=== PATIENT | male | born 1960 | race Hispanic/Latino ===

== ENCOUNTER → 2020-01-12 | Day surgery (SDC) | payer OTHER ==
[2020-01-11 10:56] LABS: BASOPHILS # (AUTO) 0.1 (0.0-0.1); EOSINOPHILS # (AUTO) 0.7 (0.0-0.4); EOSINOPHILS % 10.9 % (0.0-6.0); HEMATOCRIT 47.4 % (38.2-49.6); HEMOGLOBIN 15.7 g/dL (14.0-18.0); LYMPHOCYTES # (AUTO) 1.3 (1.0-3.2); LYMPHOCYTES % 20.7 % (18.0-39.1); MEAN CORPUSCULAR HEMOGLOBIN 27.1 pg (28-32); MEAN CORPUSCULAR HGB CONC 33.1 g/dL (31-35); MEAN CORPUSCULAR VOLUME 81.7 fL (81-99); MONOCYTES # (AUTO) 0.6 (0.2-0.8); MONOCYTES % 9.5 % (4.4-11.3); NEUTROPHILS # (AUTO) 3.6 (2.1-6.9); NEUTROPHILS % 57.9 % (38.7-80.0); PLATELET COUNT 235 x10e3/uL (140-360); RED CELL DISTRIBUTION WIDTH 13.5 % (11.7-14.4)
--- NOTE | 2020-01-11 11:23 | Diagnostic Imaging Report ---
EXAMINATION: CHEST 2 VIEWS INDICATION: Pre-operative COMPARISON: None FINDINGS: LINES/TUBES:None LUNGS:The lungs are well-inflated. No focal consolidation or pulmonary edema. Left midlung calcified granuloma. PLEURA:No pleural effusion or pneumothorax. MEDIASTINUM:The cardiomediastinal silhouette appears normal in size and shape. Atherosclerotic calcifications of the thoracic aorta. BONES/SOFT TISSUES:No acute osseous injury. ABDOMEN:No free air under the diaphragm. IMPRESSION: No focal pneumonia or pulmonary edema. Signed by: Sil Mercer MD on 01/11/2020 11:21 AM
[2020-01-11 11:24] LABS: ALANINE AMINOTRANSFERASE 49 IU/L (0-55); ALBUMIN 3.9 g/dL (3.5-5.0); ALKALINE PHOSPHATASE 224 IU/L (40-150); ANION GAP 9.3 mmol/L (8-16); BLOOD UREA NITROGEN 13 mg/dL (7-26); BUN/CREATININE RATIO 15 (6-25); CALCIUM 9.3 mg/dL (8.4-10.2); CARBON DIOXIDE 31 mmol/L (22-29); CHLORIDE 103 mmol/L (98-107); CREATININE, SERUM 0.88 mg/dL (0.72-1.25); EST GLOMERULAR FILTRATION RATE > 60 ML/MIN (60-); GLUCOSE 98 mg/dL (74-118); POTASSIUM 4.3 mmol/L (3.5-5.1); SODIUM 139 mmol/L (136-145)
[~2020-01-12] MED LIST: BUPIVACAINE 0.25% 30ML SDV INJ ONE; DEXAMETHASONE SOD PHOS INJ 4 MG/ML VIAL ONE; FENTANYL CITRATE/PF 100MCG/2 ML INJ ONE; GLYCOPYRROLATE INJ 0.2 MG/ML VIAL ONE; HYDROCODONE/APAP 7.5MG-325MG 1 EA TAB ONE; HYDROMORPHONE 1MG/1ML INJ ONE; LIDOCAINE HCL 2% LOCAL INJ 5 ML SDV VIAL INJ ONE; MIDAZOLAM HCL 2 MG/2 ML VIAL ONE; NEOSTIGMINE 1 MG/ML 10ML VIAL ONE; ONDANSETRON HCL INJ 2MG/ML 2ML 2 MG/ML VIAL ONE; PAROXETINE HCL20 MG PO; PROPOFOL IV EMULSION 10 MG/ML 20 ML VIAL ONE; ROCURONIUM BROMIDE 10 MG/ML 5ML VIAL ONE; SEVOFLURANE INHAL SOLN 250 ML PEN BTL ONE
--- OUTSIDE RECORDS SUMMARY | 2020-01-12 06:59 | XMS REPORT ---
Author Author Admin, [place] Organization Unknown Address Unknown Phone Unavailable PROBLEMS Condition Status Date Provider Notes Gallbladder polyps active Vilma C Nieto Cluster of Gallbladder polyps Prediabetes active Vilma C Nieto Hypovitaminosis D active Vilma C Nieto Elevated LFT's active Vilma C Nieto Hx of alcohol abuse active Vilma C Nieto Psa, screening active Vilma C Nieto Screening for lipid disorder active Vilma C Nieto Screening for vitamin D deficiency active Vilma C Nieto Screening for thyroid disorder active Vilma C Nieto Colon cancer screening active Vilma C Nieto Std screening active Vilma C Nieto Annual exam (18+) active Vilma C Nieto Screening for vision active Vilma C Nieto DEPRESSIVE DISORDER, MAJOR, RECURRENT EPISODE, FULL REMISSION active Marla De La Torre PANIC DISORDER active Marla De La Torre DEPRESSIVE DISORDER, MAJOR, RECURRENT EPISODE, MODERATE active Marla De La Torre ENCOUNTERS Date Type Provider Location Encounter Diagnosis - Ambulatory Encounter [facility] - Ambulatory Encounter Marla Brizuela [facility] UNK - Ambulatory Encounter [facility] - Ambulatory Encounter Fax Status [facility] UNK - Ambulatory Encounter Marlayoel [facility] UNK - Ambulatory Encounter Fax Status [facility] UNK - Ambulatory Encounter Tasha Becky [facility] UNK - Ambulatory Encounter Mar[facility] Ambulatory Encounter [facility] - [facility]ulatory [facility] - [facility] En[facility] - [facility]ulatory Encounter F[facility] - Ambulatory Encounter Vilma C Nieto [facility] C [facility] UNK - Ambulatory Encounter Vilma C Nieto Vilma C [facility] UNK - Ambulatory Encounter Vilma C Nieto Vilma C Nieto Tasha Becky [facility] Gallbladder polyps - Ambulatory Encounter [facility]K - Ambulatory Encounter Miguel [facility] UNK - Ambulatory Encounter Miguel Mcfarland [facility] UNK - Ambulatory Encounter Marla [facility] UNK - Ambulatory Encounter Marla Gutierrez [facility] UNK - Ambulatory Encounter Rachelle Mcfarland [facility] UNK - Ambulatory Encounter Nisha [facility] UNK - Ambulatory Encounter Vilma C Nieto Vilma Bryan Mcfarland [facility] UNK - Ambulatory Encounter Vilma C Nieto Vilma C Nieto Juancho Mcfarland [facility] Hx of alcohol abuseElevated LFT'sHypovitaminosis DPrediabetes - Ambulatory Encounter Nisha [facility] UNK - Ambulatory Encounter Rachelle Mcfarland [facility] UNK - Ambulatory Encounter Vilma C Nieto Vilma Mcfarland [facility] UNK - Ambulatory Encounter Nicole Mcfarland [facility] UNK - Ambulatory Encounter Vilma C Nieto Vilma C Gerson Mcfarland [facility] UNK - Ambulatory Encounter Vilma C Nieto Vilma C Nieto Brenda Mcfarland [facility] UNK - Ambulatory Encounter Vilma C Nieto Vilma C Nieto Brenda Mcfarland [facility] UNK - Ambulatory Encounter Vilma C Nieto Vilma C Nieto Bartolo [facility] UNK - Ambulatory Encounter Vilma C Nieto Vilma C Nieto Nicole Mcfarland [facility] Screening for visionAnnual exam (18+)Std screeningColon cancer screeningScreening for thyroid disorderScreening for vitamin D deficiencyScreening for lipid disorderPsa, screening - Ambulatory Encounter [facility] [place] DEPRESSIVE DISORDER, MAJOR, RECURRENT EPISODE, FULL REMISSION - Ambulatory Encounter [facility] UNK - Ambulatory Encounter [facility] UNK - Ambulatory Encounter Marla [facility] [place] DEPRESSIVE DISORDER, MAJOR, RECURRENT EPISODE, MODERATEPANIC DISORDER - Ambulatory Encounter Monalisa Herrera [facility] UNK VITAL SIGNS No Information Available Allergies No Known Allergy Information REASON FOR REFERRAL No Information Available RESULTS Date Observation Value Provider Reference Range Interpretation Location hepatitis B surface antigen Negative [facility] Negative " thyroid stimulating hormone, serum 1.440 u[iU]/mL [facility] 0.450-4.500 " hepatitis C antibody, serum <0.1 [facility] 0.0-0.9 " HIV-CMIA (Chemiluminescent Microparticle Immuno Assay) Non Reactive [facility] Non Reactive " vitamin D 25-hydroxy, serum 22.8 ng/mL [facility] 30.0-100.0 Low " rapid plasma reagin antibody, serum Non Reactive [facility] Non Reactive " hemoglobin A1C, blood, as % of total hemoglobin 5.7 % [facility] 4.8-5.6 High " prostate specific antigen 0.6 ng/mL [facility] 0.0-4.0 " Neisseria gonorrhoeae DNA probe Negative [facility] Negative " chlamydia DNA probe Negative [facility] Negative " LDL cholesterol, serum 122 mg/dL [facility] 0-99 High " very low density lipoproteins 24 mg/dL [facility] 5-40 " HDL cholesterol, serum 53 mg/dL [facility] >39 " triglyceride, serum, fasting 122 mg/dL [facility] 0-149 " cholesterol, serum 199 mg/dL [facility] 100-199 " alanine aminotransferase (SGPT), serum 67 1/L [facility] 0-44 High " aspartate aminotransferase (SGOT), serum 48 1/L [facility] 0-40 High " alkaline phosphatase, serum 211 1/L [facility] 39-117 High " bilirubin, serum, total 0.5 mg/dL [facility] 0.0-1.2 " albumin/globulin ratio, serum 1.5 [facility] 1.2-2.2 " globulin, serum 2.9 [facility] 1.5-4.5 " albumin, serum 4.3 g/dL [facility] 3.5-5.5 " protein, total, serum 7.2 g/dL [facility] 6.0-8.5 " calcium, serum 9.3 mg/dL [facility] 8.7-10.2 " carbon dioxide, venous blood 22 mmol/L [facility] 18-29 " chloride, serum 103 mmol/L [facility] 96-106 " potassium, serum 4.7 mmol/L [facility] 3.5-5.2 " sodium, serum 140 mmol/L [facility] 134-144 " urea nitrogen/creatinine ratio, serum 22 [facility] 9-20 High " eGFR if 114 mL/min/((173/100).m2) [facility] >59 " Estimated Glomerular Filtration Rate (calc) 98 mL/min/((173/100).m2) [facility] >59 " creatinine, serum 0.83 mg/dL [facility] 0.76-1.27 " urea nitrogen, blood 18 mg/dL [facility] 6-24 " blood glucose, random 98 mg/dL [facility] 65-99 " immature granulocytes, percentage of total cells, blood 0 % [facility] Not Estab. " basophil count, absolute 0.0 x10E3/uL [facility] 0.0-0.2 " Eosinophil Absolute Count 0.8 X10E3/UL [facility] 0.0-0.4 High " monocyte count, blood, automated 0.6 X10E3/UL [facility] 0.1-0.9 " lymphocyte count, blood, automated 1.5 X10E3/UL [facility] 0.7-3.1 " Absolute Neutrophils 3.9 X10E3/UL [facility] 1.4-7.0 " basophils as percent of blood leukocytes 0 % [facility] Not Estab. " eosinophils as percent of blood leukocytes 11 % [facility] Not Estab. " monocytes as percent of blood leukocytes 9 % [facility] Not Estab. " lymphocytes as percent of blood leukocytes 22 % [facility] Not Estab. " neutrophils as percent of blood leukocytes 58 % [facility] Not Estab. " platelet count 237 X10E3/UL [facility] 150-379 " red blood cell distribution width 14.2 % [facility] 12.3-15.4 " mean corpuscular hemoglobin concentration, RBC 32.7 G/DL [facility] 31.5-35.7 " mean corpuscular hemoglobin, RBC 27.5 pg [facility] 26.6-33.0 " mean corpuscular volume, RBC 84 fL [facility] 79-97 " hematocrit, blood 44.1 % [facility] 37.5-51.0 " hemoglobin, blood 14.4 g/dL [facility] 13.0-17.7 " erythrocyte (RBC) count 5.23 X10E6/UL [facility] 4.14-5.80 " leukocyte count, blood 6.7 X10E3/UL [facility] 3.4-10.8 HISTORY OF IMMUNIZATIONS No Information Available HISTORY OF MEDICATION USE Medication Instructions Dates Provider Comments VITAMIN D (ERGOCALCIFEROL) 65126 UNIT ORAL CAPSULE One capsule by mouth once per week for 10 weeks - Vilma Nieto PAROXETINE 20MG TABLETS TAKE 1 TABLET BY MOUTH DAILY Hunter Em instructions in [place] SOCIAL HISTORY Date Observation Value Provider social history E&M . x2, for the last 22 years , 4 children from first marrage and one child from last marriage Notes that he had an affair with his first a year ago Born in [facility] . 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 Sexual orientation: Heterosexual. Marlasulema De La Torre " social history reviewed E&M reviewed today Marla De La Torre " drug use, illicit Never Marla Britt " alcohol use Never Marla Britt " smoking status never smoker Marla De La Torre drug use, illicit Never Marla Britt " alcohol use Never Marla Britt " smoking status never smoker Marla Britt " social history E&M . x2, for the last 22 years , 4 children from first marrage and one child from last marriage Notes that he had an affair with his first a year ago [facility] . 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 Sexual orientation: Heterosexual. Marlasulema Combse " social history reviewed E&M reviewed today Marlasulema Combse drug use, illicit Never Marla Britt " alcohol use Never Marla Britt " smoking status never smoker Marla Britt " social history E&M . x2, for the last 22 years , 4 children from first marrage and one child from last marriage Notes that he had an affair with his first a year ago Born in [facility] . 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 Sexual orientation: Heterosexual. Marla Marie " social history reviewed E&M reviewed today Marlasulema Combse drug use, illicit Never Marla Britt " alcohol use Never Marla Britt " smoking status never smoker Marla Britt " social history E&M . x2, for the last 22 years , 4 children from first marrage and one child from last marriage Notes that he had an affair with his first a year ago Born in [facility] . 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 Sexual orientation: Heterosexual. Marla Britt " social history reviewed E&M reviewed today Marla Britt time of call 06/28/2018 3:31 PM Nisha Hatch Exercise Program Referral Latoya Zhang " Weight Management Counseling Provided Latoya Zhang " Nutrition intervention Latoya Zhang " drug use, illicit Never Juancho Zhang " alcohol use Never Juancho Zhang " social history E&M . x2, for the last 22 years , 4 children from first marrage and one child from last marriage Notes that he had an affair with his first a year ago Born in [facility] . 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 Sexual orientation: Heterosexual. Juancho Zhang " social history reviewed E&M reviewed today Juancho Zhang " is there any chance that you could be ? No Juancho Zhang " passive cigarette smoke exposure No Juancho Zhang " smoking status never smoker Juancho Zhang drug use, illicit Never Marla Britt " alcohol use Never Marla Britt " smoking status never smoker Marla Britt " social history E&M . x2, for the last 22 years , 4 children from first marrage and one child from last marriage Notes that he had an affair with his first a year ago Born in [facility] . 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 Sexual orientation: Heterosexual. Marla Combse " social history reviewed E&M reviewed today Marlasulema Combse time of call 05/10/2018 4:02 PM Nisha AlvaradoEddie sexual orientation Heterosexual Nicole Najera " Exercise Program Referral Latoya Najera " Weight Management Counseling Provided T Nicole Najera " Nutrition intervention T Nicole Najera " drug use, illicit Never Juancho Zhang " alcohol use Never Juancho Zhang " social history E&M . x2, for the last 22 years , 4 children from first marrage and one child from last marriage Notes that he had an affair with his first a year ago Born in [facility] . 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 Sexual orientation: Heterosexual. Juancho Zhang " social history reviewed E&M reviewed today Juancho Zhang " is there any chance that you could be ? No Juanchojazmin Zhang " passive cigarette smoke exposure No Juancho Zhang " smoking status never smoker Juancho Zhang time of call 04/22/2018 2:11 PM Nisha AlvaradoEddie drug use, illicit Never Nicole Najera " alcohol use Never Nicole Najera " social history E&M . x2, for the last 22 years , 4 children from first marrage and one child from last marriage Notes that he had an affair with his first a year ago Born in [facility] . 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 Sexual orientation: Heterosexual. Nicole Najera " social history reviewed E&M reviewed today Nicole Najera " sexual orientation Heterosexual Nicole Najera " is there any chance that you could be ? No Nicole Naejra " passive cigarette smoke exposure No Nicole Najera " smoking status never smoker Nicole Najera " Exercise Program Referral T Nicole Najera " Weight Management Counseling Provided T Nicole Najera " Nutrition intervention T Nicole Najera drug use, illicit Never Marla Britt " alcohol use Never Marla Britt " smoking status never smoker Marla Britt " social history E&M . x2, for the last 22 years , 4 children from first marrage and one child from last marriage Notes that he had an affair with his first a year ago Born in [facility] . 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 Sexual orientation: Heterosexual. Marla Britt " social history reviewed E&M reviewed today Marla Britt drug use, illicit Never Marla Britt " alcohol use Never Marla Britt " smoking status never smoker Marla Britt " social history E&M . x2, for the last 22 years , 4 children from first marrage and one child from last marriage Notes that he had an affair with his first a year ago Born in [facility] . 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 Sexual orientation: Heterosexual. Marla Britt " social history reviewed E&M reviewed today Marla Britt social history E&M . x2, for the last 22 years , 4 children from first marrage and one child from last marriage Notes that he had an affair with his first a year ago Born in [facility] . 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 Sexual orientation: Heterosexual. Marlasulema Combse " sexual orientation Heterosexual Marla Britt " sex at Male Marlasulema De La Torre " family support x2, for the last 22 years , 4 children from first marrage and one child from last marriage Notes that he had an affair with his first a year ago Marla De La Torre " drug use, illicit Never Marla Britt " alcohol use Never Marla Britt " smoking status never smoker Marlasulema De La Torre " social history reviewed E&M reviewed today Marlasulema Combse FUNCTIONAL STATUS No Information Available MENTAL STATUS Date Observation Value Provider mental status assessment, judgment good Marla Britt " insight (mental status exam) good Marla Britt " Mental Status Exam: intelligence adequate fund of information, intact memory processes, oriented to person, oriented to place, oriented to time, oriented to situation, oriented to reality Marla Britt " hallucinations none Marla Britt " thought content (mental status exam) (E&M) lucid Marla Britt " mental status assessment, process able to abstract, goal-directed, logical Marla Britt " mental status assessment, sensorium alert, attentive, clear Marla Britt " affect (mental status exam) congruent, euthymic, normal intensity, normal range Marla Britt " mood (mental status exam) anxious Marla Britt " mental status assessment, speech activity normal flow, normal pace, normal pressure, normal rate, normal tone, normal volume, spontaneous Marla Britt " mental status assessment, motor activity normal gait, normal posture Marla Britt " behavior (mental status exam) appropriate, candid, cooperative, good eye contact, polite, responsive Marla Britt " mental appearance (mental status exam) adequate hygiene, appropriate dress, looks like stated age, neat Marla Britt mental status assessment, judgment good Marla Britt " insight (mental status exam) good Marla Britt " Mental Status Exam: intelligence adequate fund of information, intact memory processes, oriented to person, oriented to place, oriented to time, oriented to situation, oriented to reality Marla Britt " hallucinations none Marla Britt " thought content (mental status exam) (E&M) lucid Marla Britt " mental status assessment, process able to abstract, goal-directed, logical Marla Britt " mental status assessment, sensorium alert, attentive, clear Marla Britt " affect (mental status exam) congruent, euthymic, normal intensity, normal range Marla Britt " mood (mental status exam) happy Marla Britt " mental status assessment, speech activity normal flow, normal pace, normal pressure, normal rate, normal tone, normal volume, spontaneous Marla Britt " mental status assessment, motor activity normal gait, normal posture Marla Britt " behavior (mental status exam) appropriate, candid, cooperative, good eye contact, polite, responsive Marla Britt " mental appearance (mental status exam) adequate hygiene, appropriate dress, looks like stated age, neat Marla Britt mental status assessment, judgment good Marla Britt " insight (mental status exam) good Marla Britt " Mental Status Exam: intelligence adequate fund of information, intact memory processes, oriented to person, oriented to place, oriented to time, oriented to situation, oriented to reality Marla Britt " hallucinations none Marla Britt " thought content (mental status exam) (E&M) lucid Marla Britt " mental status assessment, process able to abstract, goal-directed, logical Marla Britt " mental status assessment, sensorium alert, attentive, clear Marla Britt " affect (mental status exam) congruent, euthymic, normal intensity, normal range Marla Britt " mood (mental status exam) happy Marla Britt " mental status assessment, speech activity normal flow, normal pace, normal pressure, normal rate, normal tone, normal volume, spontaneous Marla Britt " mental status assessment, motor activity normal gait, normal posture Marla Britt " behavior (mental status exam) appropriate, candid, cooperative, good eye contact, polite, responsive Marla Britt " mental appearance (mental status exam) adequate hygiene, appropriate dress, looks like stated age, neat Marla Britt mental status assessment, judgment good Marla Britt " insight (mental status exam) good Marla Britt " Mental Status Exam: intelligence adequate fund of information, intact memory processes, oriented to person, oriented to place, oriented to time, oriented to situation, oriented to reality Marla Britt " hallucinations none Marla Britt " thought content (mental status exam) (E&M) lucid Marla Britt " mental status assessment, process able to abstract, goal-directed, logical Marla Britt " mental status assessment, sensorium alert, attentive, clear Marla Britt " affect (mental status exam) congruent, euthymic, normal intensity, normal range Marla Britt " mood (mental status exam) happy Marla Britt " mental status assessment, speech activity normal flow, normal pace, normal pressure, normal rate, normal tone, normal volume, spontaneous Marla Britt " mental status assessment, motor activity normal gait, normal posture Marla Britt " behavior (mental status exam) appropriate, candid, cooperative, good eye contact, polite, responsive Marla Britt " mental appearance (mental status exam) adequate hygiene, appropriate dress, looks like stated age, neat Marla Britt assessment of judgment and insight E&M intact Vilmajose luis Nieto " mental status examination: orientation E&M oriented to time, place, and person Vilma Bryan Nieto " assessment of mood and affect E&M no depression, anxiety, or agitation [facility] mental status assessment, judgment good Marla Britt " insight (mental status exam) good Marla Britt " Mental Status Exam: intelligence adequate fund of information, intact memory processes, oriented to person, oriented to place, oriented to time, oriented to situation, oriented to reality Marla Britt " hallucinations none Marla Britt " thought content (mental status exam) (E&M) lucid Marla Britt " mental status assessment, process able to abstract, goal-directed, logical Marla Britt " mental status assessment, sensorium alert, attentive, clear Marla Britt " affect (mental status exam) congruent, euthymic, normal intensity, normal range Marla Britt " mood (mental status exam) happy Marla Britt " mental status assessment, speech activity normal flow, normal pace, normal pressure, normal rate, normal tone, normal volume, spontaneous Marla Britt " mental status assessment, motor activity normal gait, normal posture Marla Britt " behavior (mental status exam) appropriate, candid, cooperative, good eye contact, polite, responsive Marla Britt " mental appearance (mental status exam) adequate hygiene, appropriate dress, looks like stated age, neat Marla Britt assessment of judgment and insight E&M intact Vilma C Nieto " mental status examination: orientation E&M oriented to time, place, and person Vilma C Nieto " assessment of mood and affect E&M no depression, anxiety, or agitation Vilma C Nieto " Generalized Anxiety Disorder Questionnaire - Question 2 0 Juancho Sumnerados " Generalized Anxiety Disorder Questionnaire - Question 1 0 Juancho Zhang assessment of judgment and insight E&M intact Vilma C Nieto " mental status examination: orientation E&M oriented to time, place, and person Vilma C Nieto " assessment of mood and affect E&M no depression, anxiety, or agitation Vilma C Nieto " Generalized Anxiety Disorder Questionnaire - Question 2 0 Nicole Najera " Generalized Anxiety Disorder Questionnaire - Question 1 0 Nicole Najera mental status assessment, judgment good Marla Britt " insight (mental status exam) good Marla Britt " Mental Status Exam: intelligence adequate fund of information, intact memory processes, oriented to person, oriented to place, oriented to time, oriented to situation, oriented to reality Marla Britt " hallucinations none Marla Britt " thought content (mental status exam) (E&M) lucid Marla Britt " mental status assessment, process able to abstract, goal-directed, logical Marla Britt " mental status assessment, sensorium alert, attentive, clear Marla Britt " affect (mental status exam) congruent, euthymic, normal intensity, normal range Marla Britt " mood (mental status exam) happy Marla Britt " mental status assessment, speech activity normal flow, normal pace, normal pressure, normal rate, normal tone, normal volume, spontaneous Marla Britt " mental status assessment, motor activity normal gait, normal posture Marla Britt " behavior (mental status exam) appropriate, candid, cooperative, good eye contact, polite, responsive Marla Britt " mental appearance (mental status exam) adequate hygiene, appropriate dress, looks like stated age, neat Marla Britt mental status assessment, judgment good Marla Britt " insight (mental status exam) good Marla Britt " Mental Status Exam: intelligence adequate fund of information, intact memory processes, oriented to person, oriented to place, oriented to time, oriented to situation, oriented to reality Marla Britt " hallucinations none Marla Britt " thought content (mental status exam) (E&M) lucid Marla Britt " mental status assessment, process able to abstract, goal-directed, logical Marla Birtt " mental status assessment, sensorium alert, attentive, clear Marla Britt " affect (mental status exam) congruent, euthymic, normal intensity, normal range Marla Britt " mental status assessment, speech activity normal flow, normal pace, normal pressure, normal rate, normal tone, normal volume, spontaneous Marla Britt " mental status assessment, motor activity normal gait, normal posture Marla Britt " behavior (mental status exam) appropriate, candid, cooperative, good eye contact, polite, responsive Marla Britt " mental appearance (mental status exam) adequate hygiene, appropriate dress, looks like stated age, neat Marla Britt affect (mental status exam) anxious, constricted Marla Britt " mood (mental status exam) anxious, depressed Malra Britt " mental status assessment, judgment good Marla Britt " insight (mental status exam) good Marla Britt " Mental Status Exam: intelligence adequate fund of information, intact memory processes, oriented to person, oriented to place, oriented to time, oriented to situation, oriented to reality Marla Britt " hallucinations none Marla Britt " thought content (mental status exam) (E&M) lucid Marla Britt " mental status assessment, process able to abstract, goal-directed, logical Marla Britt " mental status assessment, sensorium alert, attentive, clear Marla Britt " mental status assessment, speech activity normal flow, normal pace, normal pressure, normal rate, normal tone, normal volume, spontaneous Marla Britt " mental status assessment, motor activity normal gait, normal posture Marla Britt " behavior (mental status exam) appropriate, candid, cooperative, good eye contact, polite, responsive Marla Britt " mental appearance (mental status exam) adequate hygiene, appropriate dress, looks like stated age, neat Marla Britt " anxiety worry a lot, sleep disturbance, restlessness, many physical complaints, panic attacks Marla Britt MEDICAL EQUIPMENT No Information Available FAMILY HISTORY No Information Available INSURANCE PROVIDERS No Information Available ADVANCE DIRECTIVES No Information Available TREATMENT PLAN Date Name Comp. Metabolic Panel (14) Vitamin D, 25-Hydroxy PSA, Serum (Serial Monitor) FIT- Fecal immunoassay test HIV 1/2 ANTIGEN/ANTIBODY, FOURTH GENERATION W/RFL HCV Antibody HBsAg Screen Chlamydia/GC Amplification (Urine) RPR, Rfx Qn RPR/Confirm TP TSH Rfx on Abnormal to Free T4 Hemoglobin A1c Lipid Panel Comp. Metabolic Panel (14) CBC With Differential/Platelet - Est Patient Exp Problem - 59395 Est Patient Exp Problem - 66542 Est Patient Exp Problem - 06803 Est Patient Exp Problem - 47917 Est Patient Exp Problem - 83370 Est Patient Exp Problem - 26739 Est Patient Detailed - 67358 New Patient Well Exam (40 - 64 Yrs) - 57627 Vision Est Patient Exp Problem - 24564 Est Patient Exp Problem - 51706 Diagnostic evaluation with medical - 98821 HISTORY OF PROCEDURES Procedure Date Procedure Name Provider Procedure Notes Status Diagnostic evaluation with medical - 45087 Marla De La Torre completed GOALS No Information Available HEALTH CONCERNS No Information Available
--- OUTSIDE RECORDS SUMMARY | 2020-01-12 06:59 | XMS REPORT ---
Author Author Admin, [place] Organization Unknown Address Unknown Phone Unavailable PROBLEMS [...] DISORDER, MAJOR, RECURRENT EPISODE, FULL REMISSION active Marlasulema De La Torre PANIC DISORDER active Marla De La Torre DEPRESSIVE DISORDER, MAJOR, RECURRENT EPISODE, MODERATE active Marla De La Torre ENCOUNTERS Date Type Provider Location Encounter Diagnosis - Ambulatory Encounter Marla Brizuela [facility] [place] [facility] - Ambulatory Encounter [facility]K - Ambulatory Encounter Fax Status [facility] UNK - Ambulatory Encounter [facility] - [facility] - [facility] Tasha Pena [facility] UNK - Ambulatory Encounter [facility] UNK - Ambulatory Encounter [facility] UNK - Ambulatory Encounter Nisha Hatch [facility] UNK - [facility] - Ambulatory Encounter Vilma C Nieto Vilma C [facility] UNK - Ambulatory Encounter Vilma C Nieto Vilma C [facility] UNK - Ambulatory Encounter Vilma C Nieto Vilma C Nieto Tasha [facility] Gallbladder polyps - Ambulatory Encounter [facility] UNK - Ambulatory Encounter [facility] UNK - Ambulatory Encounter [facility] UNK - Ambulatory Encounter [facility]K - Ambulatory Encounter Marla Gutierrez [facility] [place] [facility] - Ambulatory Encounter Rachelle Mcfarland [facility] Encounter Vilma C Nieto Vilma C Gerson Mcfarland [facility] UNK - Ambulatory Encounter Vilma C Nieto Vilma C Nieto Juancho Mcfarland [facility] Hx of alcohol abuseElevated LFT'sHypovitaminosis DPrediabetes - [facility] - [facility] Encounter Rachelle Mcfarland [facility] UNK - Ambulatory Encounter Vilma C Nieto Vilma C Nieto Bartolo [facility] UNK - Ambulatory Encounter Nicole Mcfarland [facility] UNK - Ambulatory Encounter Vilma C Nieto Vilma C Nieto Bartolo [facility] UNK - Ambulatory Encounter Vilma C Nieto Vilma C Nieto Brenda Mcfarland [facility] UNK - Ambulatory Encounter Vilma C Nieto Vilma C Nieto Brenda Mcfarland [facility] UNK - Ambulatory Encounter Vilma C Nieto Vilma C Nieto Bartolo [facility] UNK - Ambulatory Encounter Vilma C Nieto Vilma C Nieto Nicole Mcfarland [facility] Screening for visionAnnual exam (18+)Std screeningColon cancer screeningScreening for thyroid disorderScreening for vitamin D deficiencyScreening for lipid disorderPsa, screening - Ambulatory Encounter Marla Miina Brizuela [facility] DEPRESSIVE DISORDER, MAJOR, RECURRENT EPISODE, FULL REMISSION - Ambulatory Encounter Marla Marie Marla Combsanthony Brizuela Bartolo [facility] UNK - Ambulatory Encounter Marla Britt Gutiérrez Britt Bartolo [facility] UNK - Ambulatory Encounter Marla De La Torre Karen Cristina [facility] DEPRESSIVE DISORDER, MAJOR, RECURRENT EPISODE, MODERATEPANIC DISORDER - Ambulatory Encounter Monalisa Puri [facility] UN VITAL SIGNS No Information Available Allergies No [...] Instructions Dates Provider Comments VITAMIN D (ERGOCALCIFEROL) 69574 UNIT ORAL CAPSULE One capsule by mouth once per week for 10 weeks - Vilma Nieto PAROXETINE 20MG TABLETS TAKE 1 TABLET BY MOUTH DAILY Hunter Em instructions in pal[place] SOCIAL HISTORY Date Observation Value Provider drug use, illicit Never Marla Britt " alcohol use Never Marla Britt " smoking status never smoker Marla Britt " social history E&M . x2, for the last 22 years , 4 children from first marrage and one child from last marriage Notes that he had an affair with his first a year ago Born in [facility] . Employed. 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 Sexual orientation: Heterosexual. Marlasulema De La Torre " social history reviewed E&M reviewed today Marla De La Torre drug use, illicit Never Marla Britt " alcohol use Never Marla Britt " smoking status never smoker Marla Britt " social history E&M . x2, for the last 22 years , 4 children from first marrage and one child from last marriage Notes that he had an affair with his first a year ago Born in [facility] . Employed. 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 Sexual orientation: Heterosexual. [...] his first a year ago Born in [facility] . Employed. 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 Sexual orientation: Heterosexual. Marla Britt " social history reviewed E&M reviewed today Marla Britt time of call 06/28/2018 3:31 PM Nisha Hatch Exercise Program Referral T Juancho Zhang " Weight Management Counseling Provided T Juancho Zhang " Nutrition intervention T Juancho Zhang " drug use, illicit Never Juancho Zhang " alcohol use Never Juancho Zhang " social history E&M . x2, for the last 22 years , 4 children from first marrage and one child from last marriage Notes that he had an affair with his first a year ago Born in [facility] . Employed. 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 Sexual orientation: Heterosexual. [...] his first a year ago Born in [facility] . Employed. 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 Sexual orientation: Heterosexual. Marla Britt " social history reviewed E&M reviewed today Marla Britt time of call 05/10/2018 4:02 PM [facility] Heterosexual Nicole Najera " Exercise Program Referral T [...] his first a year ago Born in [facility] . Employed. 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 Sexual orientation: Heterosexual. Juancho Zhang " social history reviewed E&M reviewed today Juancho Zhang " is there any chance that you could be ? No Juancho Zhang " passive cigarette smoke exposure No Juancho Zhang " smoking status never smoker Juancho Sumnerados time of call 04/22/2018 2:11 PM [facility], illicit Never Nicole Najera " alcohol use Never Nicole Najera " social history E&M . x2, for the last 22 years , 4 children from first marrage and one child from last marriage Notes that he had an affair with his first a year ago Born in [facility] . Employed. 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 Sexual orientation: Heterosexual. Nicolemarianela Najera " social history reviewed E&M reviewed today Nicole Najera " sexual orientation Heterosexual Nicole Najera " is there any chance that you could be ? No Nicole Najera " passive cigarette smoke exposure No Nicole Najera " smoking status never smoker Nicole Najera " Exercise Program Referral T Nicole Najera " Weight Management Counseling Provided T Nicole Najera " Nutrition intervention Latoya Najera drug use, illicit Never Marla Britt " alcohol use Never Marla Britt " smoking status never smoker Marla Britt " social history E&M . x2, for the last 22 years , 4 children from first marrage and one child from last marriage Notes that he had an affair with his first a year ago Born in [facility] . Employed. 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 Sexual orientation: Heterosexual. Marla De La Torre " social history reviewed E&M reviewed today Marla De La Torre drug use, illicit Never Marla Britt " alcohol use Never Marla Britt " smoking status never smoker Marla Britt " social history E&M . x2, for the last 22 years , 4 children from first marrage and one child from last marriage Notes that he had an affair with his first a year ago Born in [facility] . Employed. 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 Sexual orientation: Heterosexual. Marla De La Torre " social history reviewed E&M reviewed today Marla De La Torre social history E&M . x2, for the last 22 years , 4 children from first marrage and one child from last marriage Notes that he had an affair with his first a year ago Born in [facility] . Employed. 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 Sexual orientation: Heterosexual. Marla De La Torre " sexual orientation Heterosexual Marla Britt " sex at Male Marlasulema De La Torre " family support x2, for the last 22 years , 4 children from first marrage and one child from last marriage Notes that he had an affair with his first a year ago Marla De La Torre " drug use, illicit Never Marla Britt " alcohol use Never Malra Britt " smoking status never smoker Marla Britt " social history reviewed E&M reviewed today Marla De La Torre FUNCTIONAL STATUS No Information Available MENTAL STATUS Date Observation Value Provider mental status assessment, judgment good Marla De La Torre " insight (mental status exam) good Marla De La Torre " Mental Status Exam: intelligence adequate fund [...] depression, anxiety, or agitation Vilma C Nieto mental status assessment, judgment good Marla Britt [...] Disorder Questionnaire - Question 2 0 Juancho Zhang " Generalized Anxiety Disorder Questionnaire - Question [...] oriented to situation, oriented to reality Marla Rbitt " hallucinations none Marla Britt " thought [...] " mood (mental status exam) anxious, depressed Marla Britt " mental status assessment, judgment good [...] candid, cooperative, good eye contact, polite, responsive Marlasulema De La Torre " mental appearance (mental status exam) adequate hygiene, appropriate dress, looks like stated age, neat Marla De La Torre " anxiety worry a lot, sleep disturbance, restlessness, many physical complaints, panic attacks Marla De La Torre MEDICAL EQUIPMENT No Information Available FAMILY HISTORY [...] Differential/Platelet - Est Patient Exp Problem - 20541 Est Patient Exp Problem - 30487 Est Patient Exp Problem - 70559 Est Patient Exp Problem - 05080 Est Patient Exp Problem - 85241 Est Patient Detailed - 70075 New Patient Well Exam (40 - 64 Yrs) - 03369 Vision Est Patient Exp Problem - 47530 Est Patient Exp Problem - 33310 Diagnostic evaluation with medical - 23457 HISTORY OF PROCEDURES Procedure Date Procedure Name Provider Procedure Notes Status Diagnostic evaluation with medical - 03161 Marla Britt completed GOALS No Information Available HEALTH CONCERNS No Information Available
--- OUTSIDE RECORDS SUMMARY | 2020-01-12 07:00 | XMS REPORT ---
Author Author Admin, [place] Organization Unknown Address Unknown Phone Unavailable PROBLEMS Condition Status Date Provider Notes Vaccination against influenza active - Kiran Tirado Screening for colon cancer active Kiran Tirado Gallbladder polyps active Vilma C Nieto Cluster [...] MAJOR, RECURRENT EPISODE, FULL REMISSION active Marla Britt PANIC DISORDER active Marlasulema De La Torre DEPRESSIVE DISORDER, MAJOR, RECURRENT EPISODE, MODERATE active Marla De La Torre ENCOUNTERS Date Type Provider Location Encounter Diagnosis - Ambulatory Encounter Fax Status [facility] UNK - Ambulatory Encounter Fax Status [facility] UNK - Ambulatory Encounter Fax Status [facility] UNK - Ambulatory Encounter Kiran Tirado [facility] UNK - Ambulatory Encounter Kiran Cordova Penaalonso Menon [facility] Adult Medicine Screening for colon cancerVaccination against influenza - Ambulatory Encounter [facility]la [facility] UNK - Ambulatory Encounter Marla Brizuela [facility] UNK - Ambulatory Encounter Marla [facility] UNK - [facility] - [facility] UNK - [facility] - [facility]ulatory Encounter Tasha Pena [facility] UNK - Ambulatory Encounter Marla [facility] UNK - Ambulatory Encounter Marla [facility] UNK - Ambulatory Encounter Nisha Hatch [facility] UNK - Ambulatory Encounter [facility] - [facility] - [facility]ulatory [facility] - [facility]ulatory Encounter [facility] - Ambulatory Encounter [facility] - Ambulatory Encounter Fax Status Link[facility] UNK - Ambulatory Encounter Vilma C Nieto Vilma C Gerson Rene [facility] UNK - Ambulatory Encounter Vilma C Nieto [facility] - [facility] Vilma C Nieto Vilma C Nieto Tasha Mcfarland [facility] Gallbladder polyps - Ambulatory Encounter Marla Mcfarland [facility] UNK - [facility] - [facility] Marla [facility]land [facility] UNK - Ambulatory Encounter Marla Gutierrez [facility] UNK - [facility] UNK - Ambulatory Encounter Vilma Adams Nieto Vilma Rene [facility] UNK - Ambulatory Encounter Vilma C Nieto Vilma C Nieto Juancho Mcfarland [facility] Hx of alcohol abuseElevated LFT'sHypovitaminosis DPrediabetes - Ambulatory Encounter [facility] UNK - [facility]ulatory Encounter Vilma C Nieto Vilma Mcfarland [facility] UNK - Ambulatory Encounter [facility] Vilma Bryan Lintona Vilma Bryan Nieto [facility] En[facility] Vilma C Nieto Vilma C Nieto AbrahamLogradha Mcfarland [facility] Vilma C Nieto Vilma C Nieto Link[facility]ic Rachelle [facility] Vilma C Nieto Vil[facility] C Nieto [facility] En[facility] Vilma C Nieto Vilma C Nieto Nicolemarianela Najera [facility] Screening for visionAnnual exam (18+)Std screeningColon cancer screeningScreening for thyroid disorderScreening for vitamin D deficiencyScreening for lipid disorderPsa, screening - Ambulatory Encounter Marla Rene [facility] DEPRESSIVE DISORDER, MAJOR, RECURRENT EPISODE, FULL REMISSION - Ambulatory Encounter Marla [facility] K - Ambulatory Encounter Marla Rene [facility] - Ambulatory Encounter Marla Rene [facility] DEPRESSIVE DISORDER, MAJOR, RECURRENT EPISODE, MODERATEPANIC DISORDER - [facility]ulatory [facility] No Information Available Allergies No Known Allergy Information REASON FOR REFERRAL Start Date - End Date Service - Gastroenterology - External RESULTS Date Observation Value Provider Reference Range [...] 6.7 [id number]/UL LinkLogic 3.4-10.8 HISTORY OF IMMUNIZATIONS Date Vaccine Dose Lot Number Status Fluzone Quadrivalent IM Vial 0.5 [id number] Sanofi Pasteur 0.25 mL [id number] completed HISTORY OF MEDICATION USE Medication Instructions Dates Provider Comments VITAMIN D (ERGOCALCIFEROL) 79360 UNIT ORAL CAPSULE One capsule by mouth once per week for 10 weeks - Vilma Nieto PAROXETINE 20MG TABLETS TAKE 1 TABLET BY MOUTH DAILY Hunter Em instructions in [place] SOCIAL HISTORY Date Observation Value Provider drug use, illicit Never Nicole Menon " alcohol use Never Nicole Menon " social history E&M . x2, for the last 22 years , 4 children from first marrage and one child from last marriage Notes that he had an affair with his first a year ago Born in [facility] . Employed. 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 Sexual orientation: Heterosexual. Nicole Menon " social history reviewed E&M reviewed today Nicole Menon " family / social / cultural characteristics ([facility] 2014 Standards, 3C2) 2 dogs Nicole Menon " sexual orientation Heterosexual Nicole Menon " passive cigarette smoke exposure No Nicole Menon " smoking status never smoker Nicole Menon " Exercise Program Referral T Nicole Menon " Weight Management Counseling Provided T Nicole Menon " Nutrition intervention T Nicole Menon social history E&M . x2, for the last 22 years , 4 children from first marrage and one child from last marriage Notes that he had an affair with his first a year ago Born in [facility] . Employed. 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 Sexual orientation: Heterosexual. Marla Britt " social history reviewed E&M reviewed today Marla Britt " drug use, illicit Never Marla Britt " alcohol use Never Marla Britt " smoking status never smoker Marla Britt drug use, illicit Never Marla Britt " alcohol use Never Marla Britt " smoking status never smoker Marla Britt " social history E&M . x2, for the last 22 years , 4 children from first marrage and one child from last marriage Notes that he had an affair with his first a year ago Born in [facility] . Employed. 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 Sexual orientation: Heterosexual. [...] his first a year ago Born in [facility] . Employed. 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 Sexual orientation: Heterosexual. [...] his first a year ago Born in [facility] . Employed. 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 Sexual orientation: Heterosexual. Marla Britt " social history reviewed E&M reviewed today Marla De La Torre time of call 06/28/2018 3:31 PM Nisha [...] his first a year ago Born in [facility] . Employed. 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 Sexual orientation: Heterosexual. [...] Britt " smoking status never smoker Marlasulema Combse " social history E&M . x2, for the last 22 years , 4 children from first marrage and one child from last marriage Notes that he had an affair with his first a year ago Born in [facility] . Employed. 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 Sexual orientation: Heterosexual. Marla Combse " social history reviewed E&M reviewed today Marla Britt time of call 05/10/2018 4:02 PM Nisha AlvaradoEddie sexual orientation Heterosexual Nicole Najera " Exercise Program Referral Latoya Najera " Weight Management Counseling Provided Latoya Najera " Nutrition intervention T Nicole Najera " drug use, illicit Never Juancho Zhang " alcohol use Never Juancho Zhang " social history E&M . x2, for the last 22 years , 4 children from first marrage and one child from last marriage Notes that he had an affair with his first a year ago Born in [facility] . Employed. 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 Sexual orientation: Heterosexual. Juancho Zhang " social history reviewed E&M reviewed today Juancho Zhang " is there any chance that you could be ? No Juancho Zhang " passive cigarette smoke exposure No Juancho Zhang " smoking status never smoker Juancho Zhang time of call 04/22/2018 2:11 PM [facility]ajoanie [facility]adoD[facility] drug use, illicit Never Nicole Najera " alcohol use Never Nicole Najera " social history E&M . x2, for the last 22 years , 4 children from first marrage and one child from last marriage Notes that he had an affair with his first a year ago Born in [facility] . Employed. 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 Sexual orientation: Heterosexual. Nicole Saldañaricio " social history reviewed E&M reviewed today Nicolemarianela Najera " sexual orientation Heterosexual Nicolemarianela Najera " is there any chance that you could be ? No Nicole Najera " passive cigarette smoke exposure No Nicolemarianela Najera " smoking status never smoker Nicole Najera " Exercise Program Referral T Nicole Najera " Weight Management Counseling Provided T Nicole Najera " Nutrition intervention T Nicolemarianela Najera drug use, illicit Never Marla Britt " alcohol use Never Marla Britt " smoking status never smoker Marla Britt " social history E&M . x2, for the last 22 years , 4 children from first marrage and one child from last marriage Notes that he had an affair with his first a year ago Born in [facility] . Employed. 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 Sexual orientation: Heterosexual. [...] his first a year ago Born in [facility] . Employed. 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 Sexual orientation: Heterosexual. Marla Britt " social history reviewed E&M reviewed today Marla Britt social history E&M . x2, for the last 22 years , 4 children from first marrage and one child from last marriage Notes that he had an affair with his first a year ago Born in [facility] . Employed. 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 Sexual orientation: Heterosexual. Marla Britt " sexual orientation Heterosexual Marla Britt " sex at Male Marlasulema De La Torre " family support x2, for the last 22 years , 4 children from first marrage and one child from last marriage Notes that he had an affair with his first a year ago Marla De La Torre " drug use, illicit Never Marla De La Torre " alcohol use Never Marla De La Torre " smoking status never smoker Marla De La Torre " social history reviewed E&M reviewed today Marla Britt FUNCTIONAL STATUS No Information Available MENTAL STATUS Date Observation Value Provider mental status examination: orientation E&M oriented to time, place, and person Kiran Tirado " assessment of mood and affect E&M no depression, anxiety, or agitation Kiran Tirado mental status assessment, judgment good Marla Britt [...] of judgment and insight E&M intact Vilma Bryan Neito " mental status examination: orientation E&M oriented [...] process able to abstract, goal-directed, logical Marla Rbitt " mental status assessment, sensorium alert, attentive, [...] No Information Available TREATMENT PLAN Date Name TSH Rfx on Abnormal to Free T4 Hemoglobin A1c Lipid Panel Comp. Metabolic Panel (14) CBC With Differential/Platelet Comp. Metabolic Panel (14) Vitamin D, 25-Hydroxy PSA, Serum (Serial Monitor) FIT- Fecal immunoassay test HIV 1/2 ANTIGEN/ANTIBODY, FOURTH GENERATION W/RFL HCV Antibody HBsAg Screen Chlamydia/GC Amplification (Urine) RPR, Rfx Qn RPR/Confirm TP TSH Rfx on Abnormal to Free T4 Hemoglobin A1c Lipid Panel Comp. Metabolic Panel (14) CBC With Differential/Platelet - - First Vx - Ix admin via ID IM or jet injects without counseling by physician Fluzone Quadrivalent IM Vial 0.5 mL (PF) Est Patient Well Exam (40 - 64 Yrs) - 41564 Vaccines Ordered - Print Consent/Declination Forms Est Patient Exp Problem - 68667 Est Patient Exp Problem - 73648 Est Patient Exp Problem - 50423 Est Patient Exp Problem - 64539 Est Patient Exp Problem - 74965 Est Patient Exp Problem - 85774 Est Patient Detailed - 24027 New Patient Well Exam (40 - 64 Yrs) - 96386 Vision Est Patient Exp Problem - 62637 Est Patient Exp Problem - 69681 Diagnostic evaluation with medical - 93720 HISTORY OF PROCEDURES Procedure Date Procedure Name Provider Procedure Notes Status First Vx - Ix admin via ID IM or jet injects without counseling by physician Kiran Tirado completed Fluzone Quadrivalent IM Vial 0.5 mL (PF) Kiran Tirado completed Vaccines Ordered - Print Consent/Declination Forms Kiran Tirado completed Diagnostic evaluation with [facility] [address] Marla De La Torre completed GOALS No Information Available HEALTH CONCERNS No Information Available
--- OUTSIDE RECORDS SUMMARY | 2020-01-12 07:00 | XMS REPORT ---
Author Author Admin, [place] Organization Unknown Address Unknown Phone Unavailable PROBLEMS [...] REMISSION active Marla Britt PANIC DISORDER active Amrlasulema De La Torre DEPRESSIVE DISORDER, MAJOR, RECURRENT EPISODE, MODERATE active Marla De La Torre ENCOUNTERS Date Type Provider Location Encounter Diagnosis - Ambulatory Encounter Fax Status [facility] UNK - Ambulatory Encounter Fax Status [facility] UNK - Ambulatory Encounter Fax Status [facility] UNK - Ambulatory Encounter Kiran Tirado [facility] UNK - Ambulatory Encounter Kiran Cordova Penaalonso Menon [facility] Adult Medicine Screening for colon cancerVaccination against influenza - Ambulatory Encounter [facility] UNK - Ambulatory Encounter Marla Brizuela [facility] UNK - Ambulatory Encounter Marla [facility] UNK - [facility] - [facility] UNK - [facility] - Ambulatory Encounter Tasha Pena [facility] UNK - Ambulatory Encounter Marla [facility] UNK - Ambulatory Encounter Marla [facility] UNK - Ambulatory Encounter Nisha Hatch [facility] UNK - Ambulatory Encounter [facility] - [facility]ulatory [facility] - Ambulatory Encounter [facility] - Ambulatory Encounter [facility] - Ambulatory Encounter [facility] Ambulatory Encounter Fax Status [facility] UNK - Ambulatory Encounter Vilma C Nieto Vilma C Gerson Rene [facility] UNK - Ambulatory Encounter Vilma C Nieto [facility] - [facility]counter Vilma C Nieto Vilma C Nieto Tasha Mcfarland [facility] Gallbladder polyps - Ambulatory Encounter Marla [facility] UNK - Ambulatory En[facility] - [facility] Encounter Malra [facility] UNK - Ambulatory Encounter Marla Gutierrez [facility] UNK - Ambulatory En[facility] - [facility] UNK - Ambulatory Encounter Vilma Adams Nieto Vilma Rene [facility] UNK - Ambulatory Encounter Vilma C Nieto Vilma C Nieto Juancho [facility] Hx of alcohol abuseElevated LFT'sHypovitaminosis DPrediabetes - Ambulatory Encounter [facility] UNK - Ambulatory En[facility] - Ambulatory Encounter Vilma C Nieto Vilma Mcfar[facility] UNK - Ambulatory Encounter [facility] Vilma Bryan Lintona Vilma Bryan Nieto [facility] En[facility] Vilma C Nieto Vilma C Nieto AbrahamLogradha [facility] Vilma C Nieto Vilma C Nieto LinkLogic [facility]le [facility] Vilma C Nieto Vilma C Nieto [facility] - [facility] Vilma C Nieto Vilma C Nieto Nicolemarianela Najera [facility] Screening for visionAnnual exam (18+)Std screeningColon cancer screeningScreening for thyroid disorderScreening for vitamin D deficiencyScreening for lipid disorderPsa, screening - Ambulatory Encounter Marla Rene [facility] DEPRESSIVE DISORDER, MAJOR, RECURRENT EPISODE, FULL REMISSION - Ambulatory Encounter Marla [facility]ene [facility] K - Ambulatory Encounter Marla Rene [facility] - Ambulatory Encounter Marla Rene [facility] DEPRESSIVE DISORDER, MAJOR, RECURRENT EPISODE, MODERATEPANIC DISORDER - Ambulatory [facility] SIGNS No Information Available Allergies No [...] Status Fluzone Quadrivalent IM Vial 0.5 mL [id number] Sanofi Pasteur 0.25 mL [id number] completed HISTORY OF MEDICATION USE Medication Instructions Dates Provider Comments VITAMIN D (ERGOCALCIFEROL) 37795 UNIT ORAL CAPSULE One capsule by mouth once per week for 10 weeks - Vilma Nieto PAROXETINE 20MG TABLETS TAKE 1 TABLET BY MOUTH DAILY Hunter Em instructions in chinese SOCIAL HISTORY Date Observation Value Provider drug use, illicit Never Nicole Menon " alcohol use Never Nicole Menon " social history E&M . x2, for the last 22 years , 4 children from first marrage and one child from last marriage Notes that he had an affair with his first a year ago Born in [facility] . Employed. 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 Sexual orientation: Heterosexual. Nicole Menon " social history reviewed E&M reviewed today Nicole Menon " family / social / cultural characteristics ([facility] 2014 Standards, 3C2) 2 dogs Nicole Menon [...] his first a year ago Born in [facility] . Employed. 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 Sexual orientation: Heterosexual. [...] his first a year ago Born in [facility] . Employed. 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 Sexual orientation: Heterosexual. [...] his first a year ago Born in [facility] . Employed. 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 Sexual orientation: Heterosexual. [...] his first a year ago Born in [facility] . Employed. 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 Sexual orientation: Heterosexual. [...] his first a year ago Born in [facility] . Employed. 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 Sexual orientation: Heterosexual. [...] his first a year ago Born in [facility] . Employed. 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 Sexual orientation: Heterosexual. [...] his first a year ago Born in [facility] . Employed. 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 Sexual orientation: Heterosexual. Juancho Zhang " social history reviewed E&M reviewed today Juancho Zhang " is there any chance that you could be ? No Juancho Zhang " passive cigarette smoke exposure No Juancho Zhang " smoking status never smoker Juancho Zhang time of call 04/22/2018 2:11 PM Nishajoanie AlvaradoAlbuquerque [facility] ClinicMorgan drug use, illicit Never Nicole Najera " alcohol use Never Nicole Najera " social history E&M . x2, for the last 22 years , 4 children from first marrage and one child from last marriage Notes that he had an affair with his first a year ago Born in [facility] . Employed. 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 Sexual orientation: Heterosexual. [...] his first a year ago Born in [facility] . Employed. 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 Sexual orientation: Heterosexual. [...] his first a year ago Born in [facility] . Employed. 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 Sexual orientation: Heterosexual. Marla Britt " social history reviewed E&M reviewed today Marla Britt social history E&M . x2, for the last 22 years , 4 children from first marrage and one child from last marriage Notes that he had an affair with his first a year ago Born in [facility] . Employed. 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 Sexual orientation: Heterosexual. [...] judgment and insight E&M intact Vilma Bryan Nieto " mental status examination: orientation E&M [...] rate, normal tone, normal volume, spontaneous Marla Brtit " mental status assessment, motor activity normal [...] reality Marla Britt " hallucinations none Marla Birtt " thought content (mental status exam) (E&M) [...] Well Exam (40 - 64 Yrs) - 68273 Vaccines Ordered - Print Consent/Declination Forms Est Patient Exp Problem - 13176 Est Patient Exp Problem - 11099 Est Patient Exp Problem - 04006 Est Patient Exp Problem - 54343 Est Patient Exp Problem - 43260 Est Patient Exp Problem - 78790 Est Patient Detailed - 71305 New Patient Well Exam (40 - 64 Yrs) - 37692 Vision Est Patient Exp Problem - 86372 Est Patient Exp Problem - 60051 Diagnostic evaluation with medical - 47798 HISTORY OF PROCEDURES Procedure Date Procedure Name Provider Procedure Notes Status First Vx - Ix admin via ID IM or jet injects without counseling by physician Kiran Tirado completed Fluzone Quadrivalent IM Vial 0.5 mL (PF) Kiran Tirado completed Vaccines Ordered - Print Consent/Declination Forms Kiran Tirado completed Diagnostic evaluation with [facility] [address] Marla De La Torre completed GOALS No Information Available HEALTH CONCERNS No Information Available
--- OUTSIDE RECORDS SUMMARY | 2020-01-12 07:00 | XMS REPORT ---
Author Author Admin, [place] Organization Unknown Address Unknown Phone Unavailable PROBLEMS Condition Status Date Provider Notes Gallbladder polyps active Vilma C Nieto Cluster of Gallbladder polyps Prediabetes active Vilma C Nieto Hypovitaminosis D active Vilma C Nieto Elevated LFT's active Vilma C Nieto Hx of alcohol abuse active Vilma C Nieto Psa, screening active Vilma C Ineto Screening for lipid disorder active Vilma C [...] Health UNK - Ambulatory Encounter Marla Brizuela [facility] UNK - Ambulatory Encounter Marla [facility] UNK - Ambulatory Encounter Fax Status LinkLogic [facility] Services UNK - Ambulatory Encounter Marlayoel [facility] UNK - Ambulatory Encounter Fax Status Link[facility] UNK - Ambulatory Encounter Tasha Becky [facility] UNK - Ambulatory Encounter Marla [facility] UNK - Ambulatory Encounter Marla [facility] UNK - Ambulatory Encounter Nisha [facility]adoMorgan [facility] UNK - Ambulatory Encounter Fax Status [facility]Log[facility] UNK - Ambulatory Encounter Fax Status [facility] UNK - Ambulatory Encounter Fax Status Link[facility] UNK - Ambulatory Encounter Fax Status [facility] UNK - Ambulatory Encounter Fax Status [facility] UNK - Ambulatory Encounter Fax Status [facility] UNK - Ambulatory Encounter [...] Practice UNK - Ambulatory Encounter Miguel Mcfarland [facility] UNK - Ambulatory Encounter Marla Mcfarland [facility] UNK - Ambulatory Encounter Marla Gutierrez [facility] UNK - Ambulatory Encounter Rachelle Mcfarland [facility] UNK - Ambulatory Encounter Nisha [facility] UNK - Ambulatory Encounter Vilma C Nieto Vilma Bryan Mcfarland [facility] UNK - Ambulatory Encounter Vilma C Nieto Vilma C Nieto Juancho Mcfarland [facility] Hx of alcohol abuseElevated LFT'sHypovitaminosis DPrediabetes - Ambulatory Encounter Nisha [facility] UNK - Ambulatory Encounter Rachelle Mcfarland [facility] UNK - Ambulatory Encounter Vilma C Ineto Vilma Mcfarland [facility] UNK - Ambulatory Encounter Nicole Mcfarland [facility] UNK - Ambulatory Encounter Vilma C Nieto Vilma C Gerson Mcfarland [facility] UNK - Ambulatory Encounter Vilma C Nieto Vilma C Nieto Brenda Mcfarland [facility] UNK - Ambulatory Encounter Vilma C Nieto Vilma C Nieto Brenda Mcfarland [facility] UNK - Ambulatory Encounter Vilma C Nieto Vilma C Nieto Bartolo [facility] UNK - Ambulatory Encounter Vilma C Nieto Vilma C Nieto Nicole Mcfarland [facility] Screening for visionAnnual exam (18+)Std screeningColon cancer screeningScreening for thyroid disorderScreening for vitamin D deficiencyScreening for lipid disorderPsa, screening - Ambulatory Encounter Marla Rene [facility] DEPRESSIVE DISORDER, MAJOR, RECURRENT EPISODE, FULL REMISSION - Ambulatory Encounter Marla [facility] UNK - Ambulatory Encounter Marla [facility] UNK - Ambulatory Encounter Marla Rene [facility] DEPRESSIVE DISORDER, MAJOR, RECURRENT EPISODE, MODERATEPANIC DISORDER - Ambulatory Encounter Monalisa Herrera [facility] UNK VITAL SIGNS No Information [...] Instructions Dates Provider Comments VITAMIN D (ERGOCALCIFEROL) 22641 UNIT ORAL CAPSULE One capsule by mouth once per week for 10 weeks - Vilma Nieto PAROXETINE 20MG TABLETS TAKE 1 TABLET BY MOUTH DAILY Hunter Em instructions in chinese SOCIAL HISTORY Date Observation Value Provider social history E&M . x2, for the last 22 years , 4 children from first marrage and one child from last marriage Notes that he had an affair with his first a year ago Born in [facility] . Employed. 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 Sexual orientation: Heterosexual. [...] [facility] [place] [facility] [place] [facility] [facility] [place]. 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 Sexual orientation: Heterosexual. [...] first a year ago Born in [facility] . Employed. 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 Sexual orientation: Heterosexual. [...] first a year ago Born in [facility] . Employed. 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 Sexual orientation: Heterosexual. Marla Britt " social history reviewed E&M reviewed today Mrala Britt time of call 06/28/2018 3:31 PM [...] first a year ago Born in [facility] . Employed. 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 Sexual orientation: Heterosexual. [...] first a year ago Born in [facility] . Employed. 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 Sexual orientation: Heterosexual. [...] first a year ago Born in [facility] . Employed. 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 Sexual orientation: Heterosexual. [...] first a year ago Born in [facility] . Employed. 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 Sexual orientation: Heterosexual. [...] first a year ago Born in [facility] . Employed. 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 Sexual orientation: Heterosexual. [...] first a year ago Born in [facility] . Employed. 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 Sexual orientation: Heterosexual. Marla Britt " social history reviewed E&M reviewed today Marla Britt social history E&M . x2, for the last 22 years , 4 children from first marrage and one child from last marriage Notes that he had an affair with his first a year ago Born in [facility] . Employed. 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 Sexual orientation: Heterosexual. [...] oriented to situation, oriented to reality Marla Brtit " hallucinations none Marla Britt " thought [...] affect E&M no depression, anxiety, or agitation [facility] mental status assessment, judgment good Marla Britt [...] Differential/Platelet - Est Patient Exp Problem - 63976 Est Patient Exp Problem - 26675 Est Patient Exp Problem - 73822 Est Patient Exp Problem - 46116 Est Patient Exp Problem - 27956 Est Patient Exp Problem - 63790 Est Patient Detailed - 66504 New Patient Well Exam (40 - 64 Yrs) - 63465 Vision Est Patient Exp Problem - 00449 Est Patient Exp Problem - 17277 Diagnostic evaluation with medical - 87273 HISTORY OF PROCEDURES Procedure Date Procedure Name Provider Procedure Notes Status Diagnostic evaluation with medical - 42134 Marla De La Torre completed GOALS No Information Available HEALTH CONCERNS No Information Available
--- OUTSIDE RECORDS SUMMARY | 2020-01-12 07:01 | XMS REPORT ---
Author Author [facility] Address Unknown Phone Unavailable Care Team Providers Care Level Vial Grinder Name Role Phone French OROZCO Unavailable Unavailable Problems This patient has no known problems. Allergies, Adverse Reactions, Alerts This patient has no known allergies or adverse reactions. Medications This patient has no known medications. Encounters Start Date/Time End Date/Time Encounter Type Admission Type Attending Clinicians Care Facility Care Department Encounter ID 2017-02-09 17:49:28 2017-02-09 17:49:28 Emergency [facility] [id number] Results Test Description Test Time Test Comments Text Results Atomic Results Result Comments CHEST 2 VIEWS 2020-01-11 11:20:00 [place] [id number] Patient Name: CHARLES LAWSON MR #: [id number] : 1960 Age/Sex: 59/M Req #: [id number] Adm Physician: Ordered by: MARILYN OROZCO MD Report #: [id number] Location: OR Room/Bed: Procedure: [id number] DX/CHEST 2 VIEWS Exam Date: 01/11/20 Exam Time: 1003 REPORT STATUS: Signed EXAMINATION: CHEST 2 VIEWS INDICATION: Pre-operative COMPARISON: None FINDINGS: LINES/TUBES:None LUNGS:The lungs are well-inflated. No focal consolidation or pulmonary edema. Left midlung calcified granuloma. PLEURA:No pleural effusion or pneumothorax. MEDIASTINUM:The cardiomediastinal silhouette appears normal in size and shape. Atherosclerotic calcifications of the thoracic aorta. BONES/SOFT TISSU ES:No acute osseous injury. ABDOMEN:No free air under the diaphragm. IMPRESSION: No focal pneumonia or pulmonary edema. Signed by: Maryanne Mercer MD on 01/11/2020 11:21 AM Dictated By: MARYANNE MERCER MD 1121 Transcribed By: HEATHER on 01/11/20 1121 COPY TO: MARILYN OROZCO MD
--- OUTSIDE RECORDS SUMMARY | 2020-01-12 07:01 | XMS REPORT ---
Author Author Admin, [place] Organization Unknown Address Unknown Phone Unavailable PROBLEMS Condition Status Date Provider Notes Vaccination against influenza completed - Kiran Celestino Screening for colon cancer active Kiran Celestino Gallbladder polyps active Vilma C Nieto Cluster of Gallbladder polyps Prediabetes active Vilma C Nieto Hypovitaminosis D active Vilma C Nieto Elevated LFT's active Vilma C Nieto Hx of alcohol abuse active Vilma C Nieto Psa, screening active Ivlma C Nieto Screening for lipid disorder active [...] [facility] UNK - Ambulatory Encounter Kiran Tirado [facility] UNK - Ambulatory Encounter Kiran Tirado [facility] Encounter Kiran Tirado [facility] UNK - Ambulatory Encounter Kiran Tirado [facility] UNK - Ambulatory Encounter Kiran Tirado [facility] UNK - Ambulatory Encounter Kiran Tirado [facility] UNK - Ambulatory Encounter Fax Status [facility] UNK - Ambulatory Encounter Fax Status [facility] UNK - [facility] Kiran Tirado [facility] UNK - Ambulatory Encounter Kiran Tirado Tasha Menon [facility] Screening for colon cancerVaccination against influenza - Ambulatory Encounter Marla [facility] UNK - Ambulatory Encounter Marla Brizuela [facility] - Ambulatory Encounter Marla [facility] UNK - Ambulatory Encounter Fax Status [facility] UNK - Ambulatory Encounter Marla [facility] UNK - Ambulatory Encounter Fax Status [facility] UNK - Ambulatory Encounter Tashaterri Pena [facility] UNK - Ambulatory Encounter Mar[facility] UNK - Ambulatory Encounter Marla [facility] UNK - Ambulatory Encounter Nisha Hatch [facility] UNK - Ambulatory Encounter Fax Status [facility] Fax [facility] - [facility]ulatory Encounter Fax Status [facility] - Ambulatory Encounter Fax Status [facility] - Ambulatory Encounter Fax Status [facility] - Ambulatory Encounter Fax Status [facility] - Ambulatory Encounter Vilma C Nieto Vilma C Gerson Mcfarland [facility] UNK - Ambulatory Encounter Vilma C Nieto Vilma C [facility] UNK - Ambulatory Encounter Vilma C Nieto Vilma C Nieto [facility] Gallbladder polyps - Ambulatory Encounter Marla [facility] UNK - Ambulatory Encounter [facility] UNK - Ambulatory Encounter [facility] UNK - Ambulatory Encounter Marla [facility] UNK - Ambulatory Encounter Marla Gutierrez [facility] UNK - Ambulatory Encounter Rachelle Mcfarland [facility] UNK - Ambulatory Encounter Nisha [facility] UNK - Ambulatory Encounter Vilma C Nieto Vilma C Nieto Bartolo [facility] UNK - Ambulatory Encounter Vilma C Nieto Vilma C Nieto Juancho Mcfarland [facility] Hx of alcohol abuseElevated LFT'sHypovitaminosis DPrediabetes - Ambulatory Encounter Nisha [facility] UNK - Ambulatory Encounter Rachelle Mcfarland [facility] UNK - Ambulatory Encounter Vilma C Nieto Vilma C Nieto Bart[facility] UNK - Ambulatory Encounter Nicole Mcfarland [facility] UNK - Ambulatory Encounter Vilma C Nieto Vilma C Nieto Bart[facility] UNK - Ambulatory Encounter Vilma C Nieto Vilma C Nieto Brenda Mcfarland [facility] UNK - Ambulatory Encounter Vilma C Nieto Vilma C Nieto [facility] Rachelle Mcfarland [facility] UNK - Ambulatory Encounter Vilma C Nieto Vilma C Nieto Bart[facility] UNK - Ambulatory Encounter Vilma C Nieto Vilma C Nieto Nicole Mcfarland [facility] Screening for visionAnnual exam (18+)Std screeningColon cancer screeningScreening for thyroid disorderScreening for vitamin D deficiencyScreening for lipid disorderPsa, screening - Ambulatory Encounter Marlasulema Mcfarland [facility] DEPRESSIVE DISORDER, MAJOR, RECURRENT EPISODE, FULL REMISSION - Ambulatory Encounter Marla De La Torre Marla De La Torre Amairani Brizuela [facility] UNK - Ambulatory Encounter Marla De La Torre Marla Marie Bartolo [facility] UNK - Ambulatory Encounter Marla Mathewkrysten Cristina [facility] DEPRESSIVE DISORDER, MAJOR, RECURRENT EPISODE, MODERATEPANIC DISORDER - Ambulatory En[facility] VITAL SIGNS Date Observation Value Provider blood pressure, diastolic 98 mm[Hg] Radha Phillips " blood pressure, systolic 162 mm[Hg] Radha Phillips " pulse rate E&M 61 /min Radha Phillips " weight E&M 209 lbs. Radha Phillips " weight in kilograms E&M 95 kg Radha Phillips " height in centimeters E&M 172.72 cm Radha Phillips " height E&M 68 [in_i] Radha Phillips " method used to obtain blood pressure automatic Radha Phillips " Blood Pressure Position 01 sitting Radha Phillips " blood pressure, site #1 left arm Radha Phillips blood pressure, diastolic 87 mm[Hg] Nicole Menon " blood pressure, systolic 132 mm[Hg] Nicole Menon " oxygen saturation, oximetry 98 % Nicole Menon " pulse rate E&M 76 /min Nicole Lynsey " temperature E&M 98.0 [degF] Nicole Menon " weight E&M 204.13 lbs. Nicole Lynsey " weight in kilograms E&M 92.79 kg Nicole Lynsey " method used to obtain blood pressure automatic Nicole Menon " temperature site oral Nicoleyoel Menon " Blood Pressure Position 01 sitting Nicole Lynsey " blood pressure, site #1 right arm Nicole Menon " height E&M 68 [in_i] Nicole Menon " height in centimeters E&M 172.72 cm Nicole Menon blood pressure, diastolic 89 mm[Hg] Fabiola Castro " blood pressure, systolic 148 mm[Hg] Fabiola Castro " pulse rate E&M 85 /min Fabiola Castro " method used to obtain blood pressure automatic Fabiola Castro " Blood Pressure Position 01 sitting Fabiola Castro " blood pressure, site #1 left arm Fabiola Castro " weight E&M 208 lbs. Fabiola Castro " weight in kilograms E&M 94.55 kg Fabiola Castro " height in centimeters E&M 172.72 cm Fabiola Castro " height E&M 68 [in_i] Fabiola Castro method used to obtain blood pressure automatic Magno Tipton " Blood Pressure Position 01 sitting Magno Tipton " blood pressure, site #1 left arm Magno Tipton " blood pressure, diastolic 92 mm[Hg] Magno Tipton " blood pressure, systolic 156 mm[Hg] Magno Tipton " pulse rate E&M 84 /min Magno Tipton " weight E&M 203 lbs. Magno Tipton " weight in kilograms E&M 92.27 kg Magno Tipton " height E&M 68 [in_i] Mango Tipton " height in centimeters E&M 172.72 cm Magno Tipton method used to obtain blood pressure automatic Magno Tipton " Blood Pressure Position 01 sitting Magno Tipton " blood pressure, site #1 left arm Magno Tipton " blood pressure, diastolic 85 mm[Hg] Magno Tipton " blood pressure, systolic 133 mm[Hg] Magno Tipton " pulse rate E&M 70 /min Magno Tipton " weight E&M 200.60 lbs. Magno Tipton " weight in kilograms E&M 91.18 kg Magno Tipton " height E&M 68 [in_i] Magno Tipton " height in centimeters E&M 172.72 cm Magno Tipton blood pressure, diastolic 90 mm[Hg] Karen Cristina " blood pressure, systolic 148 mm[Hg] Karen Cristina " pulse rate E&M 69 /min Karen Cristina " weight E&M 202 lbs. Karen Cristina " weight in kilograms E&M 91.82 kg Karen Cristina " height E&M 68 [in_i] Karenmellissa Camarilloro " height in centimeters E&M 172.72 cm Karenmellissa Cristina " method used to obtain blood pressure automatic Karen Cristina " Blood Pressure Position 01 sitting Karen Cristina " blood pressure, site #1 left arm Karen Camarilloro oxygen saturation, oximetry 95 % [facility] " blood pressure, diastolic 82 mm[Hg] [facility] " blood pressure, systolic 141 mm[Hg] [facility] " respiratory rate E&M 18 /min [facility] " pulse rate E&M 77 /min [facility] " temperature E&M 98.7 [degF] [facility] " weight E&M 194 lbs. [facility] " weight in kilograms E&M 88.18 kg [facility] " method used to obtain blood pressure automatic [facility] " Blood Pressure Position 01 sitting [facility] " blood pressure, site #1 left arm [facility] " temperature site oral [facility] " height E&M 68 [in_i] [facility] " height in centimeters E&M 172.72 cm [facility] method used to obtain blood pressure automatic Fabiola Castro " Blood Pressure Position 01 sitting Fabiola Matthew " blood pressure, site #1 left arm Fabiola Castro " blood pressure, diastolic 85 mm[Hg] Fabiola Castro " blood pressure, systolic 138 mm[Hg] Fabiola Castro " pulse rate E&M 61 /min Fabiola Castro " weight E&M 190 lbs. Fabiola Castro " weight in kilograms E&M 86.36 kg Fabiola Castro " height in centimeters E&M 172.72 cm Fabiola Castro " height E&M 68 [in_i] Fabiola Castro blood pressure, diastolic 89 mm[Hg] Nicole Najera " blood pressure, systolic 139 mm[Hg] Nicole Najera " oxygen saturation, oximetry 97 % Nicole Najera " pulse rate E&M 60 /min Nicole Najera " temperature E&M 98 [degF] Nicole Najera " weight E&M 192 lbs. Nicole Najera " weight in kilograms E&M 87.27 kg Nicole Najera " method used to obtain blood pressure automatic [facility] " Blood Pressure Position 01 sitting [facility] " blood pressure, site #1 left arm [facility] " temperature site oral [facility] " height E&M 68 [in_i] [facility] " height in centimeters E&M 172.72 cm [facility] oxygen saturation, oximetry 97 % Nicole Najera " blood pressure, diastolic 80 mm[Hg] Nicole Najera " blood pressure, systolic 126 mm[Hg] Nicole Najera " pulse rate E&M 63 /min Nicole Najera " temperature E&M 98.3 [degF] Nicole Najera " weight E&M 187.38 lbs. Nicole Najera " weight in kilograms E&M 85.17 kg Nicole Najera " method used to obtain blood pressure manual Nicole Najera " Blood Pressure Position 01 sitting Nicole Najera " blood pressure, site #1 left arm Nicole Najera " temperature site oral Nicole Najera " height E&M 68 [in_i] Nicole Najera " height in centimeters E&M 172.72 cm Nicole Najera method used to obtain blood pressure automatic Amairani Brizuela " Blood Pressure Position 01 sitting Amairani Brizuela " blood pressure, site #1 left arm Amairani Brizuela " blood pressure, diastolic 96 mm[Hg] Amairani Brizuela " blood pressure, systolic 146 mm[Hg] Amairani Brizuela " pulse rate E&M 63 /min Amairani Brizuela " height E&M 68 [in_i] Amairani Brizuela " height in centimeters E&M 172.72 cm Amairani Brizuela " weight E&M 187.60 lbs. Amairani Brizuela " weight in kilograms E&M 85.27 kg Amairani Brizuela method used to obtain blood pressure automatic Amairani Brizuela " Blood Pressure Position 01 sitting Amairani Brizuela " blood pressure, site #1 left arm Amairani Brizuela " blood pressure, diastolic 86 mm[Hg] Amairani Brizuela " blood pressure, systolic 133 mm[Hg] Amairani Brizuela " pulse rate E&M 65 /min Amairani Brizuela " height E&M 68 [in_i] Amairani Brizuela " height in centimeters E&M 172.72 cm Amairani Brizuela " weight E&M 181.40 lbs. Amairani Brizuela " weight in kilograms E&M 82.45 kg Amairani Brizuela method used to obtain blood pressure automatic Karen Cristina " Blood Pressure Position 01 sitting Karen Cristina " blood pressure, site #1 left arm Karen Cristina " blood pressure, diastolic 98 mm[Hg] Karen Cristina " blood pressure, systolic 161 mm[Hg] Karen Cristina " pulse rate E&M 65 /min Karen Cristina " weight E&M 178 lbs. Karen Cristina " weight in kilograms E&M 80.91 kg Karen Cristina Allergies No Known Allergy Information REASON FOR REFERRAL Start Date - End Date Service - Gastroenterology - External RESULTS Date Observation Value Provider Reference Range Interpretation Location thyroid stimulating hormone, serum 1.640 u[iU]/mL [facility] 0.450-4.500 " hemoglobin A1C, blood, as % of total hemoglobin 5.6 % [facility] 4.8-5.6 " LDL cholesterol, serum 118 mg/dL [facility] 0-99 High " very low density lipoproteins 42 mg/dL [facility] 5-40 High " HDL cholesterol, serum 46 mg/dL [facility] >39 " triglyceride, serum, fasting 210 mg/dL [facility] 0-149 High " cholesterol, serum 206 mg/dL [facility] 100-199 High " alanine aminotransferase (SGPT), serum 52 1/L [facility] 0-44 High " aspartate aminotransferase (SGOT), serum 42 1/L [facility] 0-40 High " alkaline phosphatase, serum 208 1/L [facility] 39-117 High " bilirubin, serum, total 0.4 mg/dL [facility] 0.0-1.2 " albumin/globulin ratio, serum 1.5 [facility] 1.2-2.2 " globulin, serum 2.9 [facility] 1.5-4.5 " albumin, serum 4.4 g/dL [facility] 3.5-5.5 " protein, total, serum 7.3 g/dL [facility] 6.0-8.5 " calcium, serum 9.7 mg/dL [facility] 8.7-10.2 " carbon dioxide, venous blood 22 mmol/L [facility] 20-29 " chloride, serum 101 mmol/L [facility] 96-106 " potassium, serum 4.2 mmol/L [facility] 3.5-5.2 " sodium, serum 140 mmol/L [facility] 134-144 " urea nitrogen/creatinine ratio, serum 17 [facility] 9-20 " eGFR if 116 mL/min/((173/100).m2) [facility] >59 " Estimated Glomerular Filtration Rate (calc) 101 mL/min/((173/100).m2) [facility] >59 " creatinine, serum 0.77 mg/dL [facility] 0.76-1.27 " urea nitrogen, blood 13 mg/dL [facility] 6-24 " blood glucose, random 100 mg/dL [facility] 65-99 High " immature granulocytes, percentage of total cells, blood 0 % [facility] Not Estab. " basophil count, absolute 0.0 x10E3/uL [facility] 0.0-0.2 " Eosinophil Absolute Count 0.6 X10E3/UL [facility] 0.0-0.4 High " monocyte count, blood, automated 0.6 X10E3/UL [facility] 0.1-0.9 " lymphocyte count, blood, automated 1.7 X10E3/UL [facility] 0.7-3.1 " Absolute Neutrophils 4.3 X10E3/UL [facility] 1.4-7.0 " basophils as percent of blood leukocytes 0 % [facility] Not Estab. " eosinophils as percent of blood leukocytes 9 % [facility] Not Estab. " monocytes as percent of blood leukocytes 8 % [facility] Not Estab. " lymphocytes as percent of blood leukocytes 24 % [facility] Not Estab. " neutrophils as percent of blood leukocytes 59 % [facility] Not Estab. " platelet count 147 X10E3/UL [facility] 150-450 Low " red blood cell distribution width 14.5 % [facility] 12.3-15.4 " mean corpuscular hemoglobin concentration, RBC 34.7 G/DL [facility] 31.5-35.7 " mean corpuscular hemoglobin, RBC 28.2 pg [facility] 26.6-33.0 " mean corpuscular volume, RBC 81 fL [facility] 79-97 " hematocrit, blood 45.5 % [facility] 37.5-51.0 " hemoglobin, blood 15.8 g/dL [facility] 13.0-17.7 " erythrocyte (RBC) count 5.60 X10E6/UL [facility] 4.14-5.80 " leukocyte count, blood 7.3 X10E3/UL [facility] 3.4-10.8 hepatitis B surface antigen Negative [facility] Negative [...] Status Fluzone Quadrivalent IM Vial 0.5 mL PF [id number] [employer] Pasteur 0.25 mL [id number] completed HISTORY OF MEDICATION USE Medication Instructions Dates Provider Comments VITAMIN D (ERGOCALCIFEROL) 16969 UNIT ORAL CAPSULE One capsule by mouth once per week for 10 weeks - Vilma Nieto PAROXETINE 20MG TABLETS TAKE 1 TABLET BY MOUTH DAILY Hunter Em instructions in japanese SOCIAL HISTORY Date Observation Value Provider social history E&M . x2, for the last 22 years , 4 children from first marrage and one child from last marriage Notes that he had an affair with his first a year ago Born in [facility] . Employed. 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 Sexual orientation: Heterosexual. Marla De La Torre " social history reviewed E&M reviewed today Marla De La Torre " drug use, illicit Never Marla Britt " alcohol use Never Marla Britt " smoking status never smoker Marla De La Torre drug use, illicit Never Nicole Menon " alcohol use Never Nicole Menon " social history E&M . x2, for the last 22 years , 4 children from first marrage and one child from last marriage Notes that he had an affair with his first a year ago Born in [facility] . Employed. 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 Sexual orientation: Heterosexual. Nicole Menon " social history reviewed E&M reviewed today Nicole Churdo " family / social / cultural characteristics ([employer] 2014 Standards, 3C2) 2 dogs Nicole Menon " sexual orientation Heterosexual Nicole Churdo " passive cigarette smoke exposure No Nicole Churdo " smoking status never smoker Nicole Churdo " Exercise Program Referral T Nicole Churdo " Weight Management Counseling Provided T Nicole Churdo " Nutrition intervention T Nicole Menon social history E&M . x2, for the last 22 years , 4 children from first marrage and one child from last marriage Notes that he had an affair with his first a year ago Born in [facility] . Employed. 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 Sexual [...] first a year ago Born in [facility] . Employed. 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 Sexual [...] first a year ago Born in [facility] . Employed. 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 Sexual [...] first a year ago Born in [facility] . Employed. 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 Sexual orientation: Heterosexual. Marla Britt " social history reviewed E&M reviewed today Marlasulema De La Torre time of call 06/28/2018 [...] first a year ago Born in [facility] . Employed. 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 Sexual [...] first a year ago Born in [facility] . Employed. 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 Sexual orientation: Heterosexual. Marla Britt " social history reviewed E&M reviewed today Marla De La Torre time of call 05/10/2018 4:02 PM Nisha Hatch sexual orientation Heterosexual Nicole Najera " Exercise Program Referral T Nicole Najera " Weight Management Counseling Provided T Nicole Najera " Nutrition intervention T Nicole Najera " drug use, illicit Never Juancho Hzang " alcohol use Never Juancho Zhang " social history E&M . x2, for the last 22 years , 4 children from first marrage and one child from last marriage Notes that he had an affair with his first a year ago Born in [facility] . Employed. 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 Sexual orientation: Heterosexual. Juancho Zhang " social history reviewed E&M reviewed today Juancho Zhang " is there any chance that you could be ? No Juancho Zhang " passive cigarette smoke exposure No Juancho Zhang " smoking status never smoker Juancho Zhang time of call 04/22/2018 2:11 PM Nisha ChristianoDemondMorgan drug use, illicit Never Nicole Najera " alcohol use Never Nicole Najera " social history E&M . x2, for the last 22 years , 4 children from first marrage and one child from last marriage Notes that he had an affair with his first a year ago Born in [facility] . Employed. 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 Sexual [...] first a year ago Born in [facility] . Employed. 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 Sexual orientation: Heterosexual. Marlasulema De La Torre " social history reviewed E&M reviewed today Marla De La Torre drug use, illicit Never Marla Britt " alcohol use Never Marla Britt " smoking status never smoker Marla De La Torre " social history E&M . x2, for the last 22 years , 4 children from first marrage and one child from last marriage Notes that he had an affair with his first a year ago Born in [facility] . Employed. 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 Sexual orientation: Heterosexual. Marla Britt " social history reviewed E&M reviewed today Marla Britt social history E&M . x2, for the last 22 years , 4 children from first marrage and one child from last marriage Notes that he had an affair with his first a year ago Born in [facility] . Employed. 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 Sexual [...] time, oriented to situation, oriented to reality Marlasulema De La Torre " hallucinations none Marlasulema De La Torre " thought content (mental status exam) (E&M) lucid Marla De La Torre " mental status assessment, process able to abstract, goal-directed, logical Marla Britt " mental status assessment, sensorium alert, attentive, clear Marla Britt " affect (mental status exam) congruent, euthymic, normal intensity, normal range Marla Britt " mood (mental status exam) peasant Marla Britt " mental status assessment, speech [...] stated age, neat Marla Britt mental status examination: orientation E&M oriented to [...] stated age, neat Marla De La Torre mental status assessment, judgment good Marla Britt [...] stated age, neat Marla De La Torre assessment of judgment and insight E&M intact Vilma Nieto " mental status examination: orientation E&M oriented to time, place, and person Vilma Nieto " assessment of mood and affect E&M no depression, anxiety, or agitation Vilma Lintona mental status assessment, judgment good Marla Britt [...] rate, normal tone, normal volume, spontaneous Marla De La Torre " mental status assessment, motor activity normal gait, normal posture Marla De La Torre " behavior (mental status exam) appropriate, candid, cooperative, good eye contact, polite, responsive Marla De La Torre " mental appearance (mental [...] Panel (14) CBC With Differential/Platelet - - - Est Patient Exp Problem - 25129 First Vx - Ix admin via ID IM or jet injects without counseling by physician Fluzone Quadrivalent IM Vial 0.5 mL (PF) Est Patient Well Exam (40 - 64 Yrs) - 37926 Vaccines Ordered - Print Consent/Declination Forms Est Patient Exp Problem - 76418 Est Patient Exp Problem - 96988 Est Patient Exp Problem - 88253 Est Patient Exp Problem - 10208 Est Patient Exp Problem - 11753 Est Patient Exp Problem - 42192 Est Patient Detailed - 55077 New Patient Well Exam (40 - 64 Yrs) - 28192 Vision Est Patient Exp Problem - 92757 Est Patient Exp Problem - 35773 Diagnostic evaluation with medical - 46348 HISTORY OF PROCEDURES Procedure Date Procedure Name Provider Procedure Notes Status First Vx - Ix admin via ID IM or jet injects without counseling by physician Kiran Tirado completed Fluzone Quadrivalent IM Vial 0.5 mL (PF) Kiran Tirado completed Vaccines Ordered - Print Consent/Declination Forms Kiran Tirado completed Diagnostic evaluation with medical - 81782 Marla De La Torre completed GOALS No Information Available [facility] No Information Available
--- OUTSIDE RECORDS SUMMARY | 2020-01-12 07:01 | XMS REPORT ---
Author Author Admin, [employer] Organization Unknown Address Unknown Phone Unavailable PROBLEMS [...] Health UNK - Ambulatory Encounter Kiran Tirado [facility] UNK - Ambulatory Encounter Kiran Tirado [facility] UNK - [facility] UNK - Ambulatory Encounter Kiran Tirado [facility] UNK - Ambulatory Encounter Kiran Tirado [facility] UNK - Ambulatory Encounter Kiran Tirado [facility] UNK - Ambulatory Encounter Kiran Tirado [facility] UNK - Ambulatory Encounter Fax Status [facility] UNK - Ambulatory Encounter Fax Status [facility] UNK - Amb[facility] - [facility] Encounter Kiran Tirado [facility] UNK - Ambulatory Encounter Kiran Tirado Tasha Menon [facility] Screening for colon cancerVaccination against influenza - Ambulatory Encounter [facility] UNK - Ambulatory Encounter Marla Brizuela [facility] UNK - Ambulatory Encounter [facility] UNK - Ambulatory Encounter Fax Status [facility] UNK - Ambulatory Encounter [facility] UNK - Ambulatory Encounter Fax Status [facility] UNK - Ambulatory Encounter Tashaterri Pena [facility] UNK - Ambulatory Encounter [facility] UNK - Ambulatory Encounter Marla [facility] UNK - Ambulatory Encounter Nisha Hatch [facility] UNK - Ambulatory Encounter Fax Status [facility] - [facility]ulatory Encounter Fax Status [facility] UNK - Ambulatory Encounter Fax Status [facility] UNK [facility] Ambulatory Encounter Fax Status [facility] UNK - Ambulatory Encounter Fax Status [facility] UNK - Ambulatory Encounter Fax Status [facility] UNK - Ambulatory Encounter Vilma C Nieto Vilma C Gerson Mcfarland [facility] UNK - Ambulatory Encounter Vilma [...] Health UNK - Ambulatory Encounter Marla Gutierrez [facility] UNK - Ambulatory Encounter Rachelle Mcfarland [facility] UNK - Ambulatory Encounter Nisha [facility] UNK - Ambulatory Encounter Vilma C Nieto Vilma C Nieto Bartolo [facility] UNK - Ambulatory Encounter Vilma C Nieto Vilma C Nieto Juancho Mcfarland [facility] Hx of alcohol abuseElevated LFT'sHypovitaminosis DPrediabetes - Ambulatory Encounter Nisha [facility] UNK - Ambulatory Encounter Rachelle Mcfarland [facility] UNK - Ambulatory Encounter Vilma C Nieto Vilma C Nieto Bartolo [facility] UNK - Ambulatory Encounter Nicole Mcfarland [facility] UNK - Ambulatory Encounter Vilma C Nieto Vilma C Nieto Bartolo [facility] UNK - Ambulatory Encounter Vimla C Nieto Vilma C Nieto Brenda Mcfarland [facility] UNK - Ambulatory Encounter Vilma C Nieto Vilma C Nieto [facility] Rachelle Mcfarland [facility] UNK - Ambulatory Encounter Vilma C Nieto Vilma C Nieto Bartolo [facility] UNK - Ambulatory Encounter Vilma C Nieto Vilma C Nieto Nicole Mcfarland [facility] Screening for visionAnnual exam (18+)Std screeningColon cancer screeningScreening for thyroid disorderScreening for vitamin D deficiencyScreening for lipid disorderPsa, screening - Ambulatory Encounter Marlasulema Mcfarland [facility] DEPRESSIVE DISORDER, MAJOR, RECURRENT EPISODE, FULL REMISSION - Ambulatory Encounter Marla De La Torre Marla De La Torre Amairani Brizuela Bartolo [facility] UNK - Ambulatory Encounter Marla De La Torre Marla Marie Bartolo [facility] UNK - Ambulatory Encounter Marla Mathewkrysten Cristina Bartolo [facility] DEPRESSIVE DISORDER, MAJOR, RECURRENT EPISODE, MODERATEPANIC DISORDER - [facility] V[facility] SIGNS Date Observation Value Provider blood [...] Karen Camarilloro oxygen saturation, oximetry 95 % [facility] " blood pressure, diastolic 82 mm[Hg] [facility] " blood pressure, systolic 141 mm[Hg] [facility] " respiratory rate E&M 18 /min [facility] " pulse rate E&M 77 /min [facility] " temperature E&M 98.7 [degF] [facility] " weight E&M 194 lbs. [facility] " weight in kilograms E&M 88.18 kg [facility] " method used to obtain blood pressure automatic [facility] " Blood Pressure Position 01 sitting [facility] " blood pressure, site #1 left arm [facility] " temperature site oral [facility] " height E&M 68 [in_i] [facility] " height in centimeters E&M 172.72 cm [facility] method used to obtain blood pressure [...] method used to obtain blood pressure automatic [facility] " Blood Pressure Position 01 sitting [facility] " blood pressure, site #1 left arm [facility] " temperature site oral [facility] " height E&M 68 [in_i] [facility] " height in centimeters E&M 172.72 cm [facility] oxygen saturation, oximetry 97 % Nicole [...] Brizuela " height E&M 68 [in_i] Amairani Birzuela " height in centimeters E&M 172.72 cm [...] Fluzone Quadrivalent IM Vial 0.5 mL PF [id number] [employer] P[employer] 0.25 mL [id number] completed HISTORY OF MEDICATION USE Medication Instructions Dates Provider Comments VITAMIN D (ERGOCALCIFEROL) 36619 UNIT ORAL CAPSULE One capsule by mouth once per week for 10 weeks - Vilma Nieto PAROXETINE 20MG TABLETS TAKE 1 TABLET BY MOUTH DAILY [facility] Em instructions in telugu SOCIAL HISTORY Date Observation Value Provider social history E&M . x2, for the last 22 years , 4 children from first marrage and one child from last marriage Notes that he had an affair with his first a year ago Born in [facility] . 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 Sexual [...] . 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 Sexual orientation: Heterosexual. Nicole Menon " social history reviewed E&M reviewed today Nicole Churdo " family / social / cultural characteristics ([facility] 2014 Standards, 3C2) 2 dogs Nicole Menon [...] . 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 Sexual [...] . 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 Sexual [...] . 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 Sexual [...] . 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 Sexual [...] . 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 Sexual [...] . 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 Sexual [...] . 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 Sexual orientation: Heterosexual. Juancho Zhang " social history reviewed E&M reviewed today Juancho hZang " is there any chance that you [...] . 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 Sexual [...] . 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 Sexual [...] . 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 Sexual [...] . 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 Sexual [...] - - Est Patient Exp Problem - 74158 First Vx - Ix admin via ID IM or jet injects without counseling by physician Fluzone Quadrivalent IM Vial 0.5 mL (PF) Est Patient Well Exam (40 - 64 Yrs) - 11608 Vaccines Ordered - Print Consent/Declination Forms Est Patient Exp Problem - 35821 Est Patient Exp Problem - 43520 Est Patient Exp Problem - 48816 Est Patient Exp Problem - 91175 Est Patient Exp Problem - 54010 Est Patient Exp Problem - 71778 Est Patient Detailed - 95707 New Patient Well Exam (40 - 64 Yrs) - 88532 Vision Est Patient Exp Problem - 77807 Est Patient Exp Problem - 63619 Diagnostic evaluation with medical - 28482 HISTORY OF PROCEDURES Procedure Date Procedure Name Provider Procedure Notes Status First Vx - Ix admin via ID IM or jet injects without counseling by physician Kiran Tirado completed Fluzone Quadrivalent IM Vial 0.5 mL (PF) Kiran Tirado completed Vaccines Ordered - Print Consent/Declination Forms Kiran Tirado completed Diagnostic evaluation with medical - 46016 Marla De La Torre completed GOALS No Information Available HEALTH CONCERNS No Information Available
[2020-01-12 11:50] VITALS: BP 146/92
--- NOTE | 2020-01-12 18:39 | Operative Report ---
DATE OF PROCEDURE: 01/12/2020 SURGEON: Brad Sawyer MD PREOPERATIVE DIAGNOSIS: Gallbladder polyps. POSTOPERATIVE DIAGNOSIS: Gallbladder polyps with cholecystitis and cholelithiasis. OPERATION PERFORMED: Laparoscopic cholecystectomy. TEACHER ASSISTANT: RUTHANN Mckenzie ANESTHESIA: General. COMPLICATIONS: None. ESTIMATED BLOOD LOSS: Minimal. DESCRIPTION OF PROCEDURE: With the patient lying in bed in the supine position under good general endotracheal anesthesia, the abdomen was prepped with Betadine solution and draped in the usual manner. A Veress needle was introduced into the umbilicus and pneumoperitoneum was established without any difficulty. An 11 mm trocar was placed into the umbilicus and a 10 mm video laparoscope was placed into the intraabdominal cavity. Under direct vision, three 5 mm trocars were placed in the right subcostal region. Video laparoscopy at this point revealed that the gallbladder was totally covered up with thick adhesions. The patient was not supposed to have any stones, but there was obviously an inflammatory chronic process of the gallbladder fossa. The rest of the abdominal exploration was otherwise within normal limits. The adhesions of the gallbladder were slowly and carefully taken down. After this was done, the peritoneum overlying the neck of the gallbladder was then opened and the cystic duct was identified. The cystic duct was followed to its junction with the common duct. The cystic duct was then circumferentially dissected away from the common duct, doubly clipped, and divided. The cystic artery was similarly doubly clipped and divided. The gallbladder was then slowly and carefully taken off the liver bed using the cautery scissors and perfect hemostasis was ascertained. The gallbladder was then grasped through the umbilical port and removed without any difficulty. Examination of the gallbladder did reveal the patient had some stones in the gallbladder that were not seen in the ultrasound. Laparoscopy was then again carried out. The liver bed was found to be perfectly dry. All the excess fluid was aspirated. The pneumoperitoneum was evacuated and all the trocars were removed under direct vision. The midline fascia at the umbilicus was then closed with a [id number] of 0 Vicryl. All layers were infiltrated on the way out with solution of 0.25% Marcaine. Subcutaneous tissue was approximated with 3-0 Vicryl and the skin was closed with subcuticular 5-0 Vicryl. Benzoin, Steri-Strips, and Band-Aids were applied. The sponge, lap, and needle count was correct. The patient tolerated the procedure well and returned to the recovery room in stable condition. MD BONY Odom/TAYLOR /[id number]
== END | disposition home or self-care (01) ==
LOC: OR 06:14
PROVIDERS: ATTEND Surgery
DX: K80.10 Calculus of gallbladder with chronic cholecystitis without obstruction (principal); K82.8 Other specified diseases of gallbladder; K76.0 Fatty (change of) liver, not elsewhere classified; F32.9 Major depressive disorder, single episode, unspecified; F41.9 Anxiety disorder, unspecified; Z01.810 Encounter for preprocedural cardiovascular examination; Z01.812 Encounter for preprocedural laboratory examination; Z01.818 Encounter for other preprocedural examination
CPT/HCPCS: 36415; 47562; 71046; 80053; 85025; 88304; 93005; C1766; J1100; J1170; J2001; J2250; J2405; J2704; J2710; J3010